=== PATIENT | female | born 1975 | race Caucasian/White ===

== ENCOUNTER 2018-03-27 17:32 | Outpatient (CLI) | payer SELFPAY ==
[2018-03-27 17:44] VITALS: BP 139/64; PULSE 94; RESP 18; TEMP 36.8; O2SAT 97; BMI 45.2
--- NOTE | 2018-03-27 18:04 | US_ITS ---
US OB limited position: INDICATION: ITS.REASON: c/o no movement since 1699 yesterday ORDERING PHYSICIAN: Oleg Xavier MD PATIENT AGE: 42 years TECHNIQUE: ultrasound transabdominal scanning. COMPARISON: No previous relevant studies. FINDINGS: Scanning was performed with Dr. Toney present. There is a single fetus in cephalic presentation. No heartbeat was identified and no flow was seen on Doppler evaluation of the umbilical cord. No spontaneous movement seen. IMPRESSION: Apparent third trimester demise
--- NOTE | 2018-03-27 19:38 | P.PN_ITS ---
Internal Medicine - PN: Subj *Date: 03/27/18 *Time: 19:36 Interval history: She is a 42-year-old 4 para 3 at 38+6 weeks gestational age. Her due date is April 04, 2018. She has been followed by a ambulance assistant and had plan to deliver at home. She has delivered 2 other babies at home. She had decreased movement today and came into labor and delivery. An ultrasound confirmed that she has demise. There is no heart rate activity. There is no flow on Doppler. Exam Vital signs and Labs for Last 24 Hours: Temp Pulse Resp BP Pulse Ox 98.2 F 94 H 18 139/64 97 03/27/18 17:44 03/27/18 17:44 03/27/18 17:44 03/27/18 17:44 03/27/18 17:44 I & O for Last 24 hours: Intake & Output 03/25/18 03/26/18 03/27/18 03/28/18 11:59 11:59 11:59 11:59 Weight 289 lb - Constitutional no acute distress - *Routine HEENT Exam Head: Present: normocephalic Assessment and Plan (1) Stillbirth with antepartum Current visit: Yes Status: Acute Category: Medical Code(s): Z37.1 - Single stillbirth (2) Advanced maternal age (AMA), 40 years or greater Current visit: Yes Status: Acute Category: Medical - Assessment and plan all Dx Assessment and Plan for all problems:: She is 38 and 6 weeks gestational age with advanced maternal age. She has a stillbirth. We will plan to send her home and she will follow-up me in the next 24 hours. We will plan to induce her. Her cervix is closed and the presenting part is very high. We will start with Cervidil and then oxytocin. She will call me in the morning.
[2018-03-27 20:26] LABS: Basophils % 0.1 % (0.1-2.0); Eosinophils # 0.1 K/mm3 (0.0-0.4); Eosinophils % 0.8 % (0.1-12.0); Hematocrit 43.9 % (37.0-47.0); Lymphocytes # 1.6 K/mm3 (0.7-4.5); Lymphocytes % 12.7 K/mm3 (10-50); Mean Corpuscular Volume 90.8 fl (81-99); Mean Platelet Volume 7.7 fl (7.4-10.4); Monocytes # 0.8 K/mm3 (0.1-1.0); Monocytes % 6.1 % (1.7-9.3); Neutrophils % 80.4 % (37.0-80.0); Platelet Count 240 K/mm3 (142-424); Red Blood Count 4.83 M/mm3 (4.20-5.40); Red Cell Distribution Width 14.4 % (11.5-17.5); White Blood Count 12.4 K/mm3 (4.8-10.8)
[2018-03-27 20:48] LABS: Thyroid Stimulating Hormone 3.01 uIU/ml (0.358-3.740)
[2018-03-29 22:22] LABS: PTT-LA 40.6 sec (0.0-51.9)
[2018-03-30 11:58] LABS: Anti-Cardio Antibody IgM <9 MPL U/mL (0-12); Anti-Cardiolipin Antibody IgG <9 GPL U/mL (0-14); Rapid Plasma Reagin Ab Titer Non Reactive (NonRea<1:1); dRVVT 41.6 sec (0.0-47.0)
[2018-03-30 17:08] LABS: Lupus Reflex Interpretation Comment: (.)
[2018-03-31 18:28] LABS: Parvovirus B19, IgG 2.5 index (0.0-0.8); Parvovirus B19, IgM 0.1 index (0.0-0.8)
== END 2018-03-27 20:47 | disposition home or self-care (01) ==
LOC: OBOUT 17:34 → OB 17:35
PROVIDERS: Visit Provider Nurse Practitioner Obstetrics & Gynecology
DX: O36.8130 Decreased fetal movements, third trimester, not applicable or unspecified (principal); Z3A.38 38 weeks gestation of pregnancy
CPT/HCPCS: 36415; 76815; 84443; 85025; 85460; 85461; 85613; 86147; 86592; 86747

== ENCOUNTER 2019-07-01 19:38 | Observation (INO) ==
[2019-07-01 19:54] LABS: Basophils % 0.2 % (0.1-2.0); Eosinophils # 0.1 K/mm3 (0.0-0.4); Eosinophils % 1.2 % (0.1-12.0); Hemoglobin 11.2 g/dL (12.2-16.2); Lymphocytes # 2.5 K/mm3 (0.7-4.5); Lymphocytes % 20.8 % (10-50); Mean Corpuscular HGB Conc 30.4 g/dL (31.8-35.4); Mean Corpuscular Volume 81.6 fl (81-99); Mean Platelet Volume 7.9 fl (7.4-10.4); Monocytes # 0.6 K/mm3 (0.1-1.0); Neutrophils # 8.6 K/mm3 (1.8-7.8); Neutrophils % 72.8 % (37.0-80.0); Platelet Count 427 K/mm3 (142-424); Red Blood Count 4.54 M/mm3 (4.20-5.40); Red Cell Distribution Width 14.5 % (11.5-17.5); White Blood Count 11.8 K/mm3 (4.8-10.8)
[2019-07-01 20:06] LABS: Albumin Level 3.4 gm/dL (3.4-5.0); Albumin/Globulin Ratio 0.9 (1.1-1.8); Anion Gap 14.3 mEq/L (5-15); Bilirubin,Total 0.2 mg/dL (0.2-1.0); Calcium 8.9 mg/dL (8.5-10.1); Total Protein,Serum 7.4 gm/dL (6.4-8.2)
--- NOTE | 2019-07-01 21:39 | Emergency Department Note ---
ED Disposition Clinical Impression: Fracture dislocation of right ankle joint Disposition: Home, Self-Care Condition on Discharge: Good Instructions: DI for Shinbone Fracture, DI for Ankle Fracture Prescriptions: Hydrocodone/Acetaminophen [[place] 10-325 Tablet] 1 tab PO TID PRN 3 Days #10 tab PRN Reason: Moderate To Severe Pain Referrals: Caro Moore [Primary Care Provider] - Time of Disposition: 21:40 - Critical Care Critical Care Time: No Attestation: On 07/01/19, the high probability of a clinically significant, sudden or life threatening deterioration of the following system(s) required my full and direct attention, intervention and personal management. The time I documented below is in addition to time spent performing reported procedures but includes the following listed in this critical care notation. Medical Decision Making - Rafiq Inquiry Pt receiving controlled substance: No Rafiq was queried for this patient: No Vital Signs: 07/01/19 19:39 07/01/19 20:39 Temperature 97.5 F L Temperature Source Oral Pulse Rate [Right Brachial] 73 77 Respiratory Rate 15 15 Blood Pressure [Right Arm] 141/76 H 155/70 H Blood Pressure Mean [Right Arm] 97 98 02 Sat by Pulse Oximetry 100 98 Oxygen Delivery Method Room Air - Lab Data Lab results reviewed: Yes: I reviewed the patient's lab results. Lab Results 07/01/19 19:45: WBC 11.8 H, RBC 4.54, Hgb 11.2 L, Hct 37.0, MCV 81.6, MCH 24.8 L , MCHC 30.4 L, RDW 14.5, Plt Count 427 H, MPV 7.9, Neut % (Auto) 72.8, Lymph % (Auto) 20.8, [place] % (Auto) 5.0, Eos % (Auto) 1.2, Baso % (Auto) 0.2, Neut # (Auto) 8.6 H, Lymph # (Auto) 2.5, [place] # (Auto) 0.6, Eos # (Auto) 0.1, Baso # (Auto) 0.0 07/01/19 19:45: Sodium 140, Potassium 3.3 L, Chloride 106, Carbon Dioxide 23, Anion Gap 14.3, BUN 12, Creatinine 0.75, Estimated Creat Clear 90, Estimated GFR 84, Est GFR ( Amer) 102, Glucose 129 H, Calcium 8.9, Total Bilirubin 0.2, AST 11 L, ALT 20, Alkaline Phosphatase 84, Total Protein 7.4, Albumin 3.4, Globu tiffany 4.0 H, Albumin/Globulin Ratio 0.9 L Result diagrams: 07/01/19 19:45 07/01/19 19:45 Orders (Tests/Meds): ED MEDICATIONS Generic Name Dose Route Start Last Admin Trade Name Freq PRN Reason Stop Dose Admin Sodium Chloride 1,000 mls @ 999 mls/hr 07/01/19 19:45 07/01/19 19:47 Sod Chlor 0.9% 1000ml Bag IV 07/01/19 20:45 999 mls/hr .[id number] TOSHA Administration Discontinued Medications Generic Name Dose Route Start Last Admin Trade Name Freq PRN Reason Stop Dose Admin Hydromorphone HCl 1 mg 07/01/19 19:44 07/01/19 19:47 Dilaudid 2mg/Ml Syringe IV 07/01/19 19:45 1 mg ONCE ONE Administration Ketorolac Tromethamine 30 mg 07/01/19 20:45 07/01/19 20:46 Toradol 30mg/Ml Vial IV 07/01/19 20:46 30 mg ONCE ONE Administration ORDERS Category Date Time Status CT cervical spine wo con Stat Cat Scan 07/01/19 19:[address] head/brain wo con Stat Cat Scan 07/01/19 19:44 Taken Fibula/tibia XR right 2 views [XR tibia fibula RT 2V] Exams 07/01/19 19:44 Taken Stat XR ankle RT min 3V Stat Exams 07/01/19 19:44 Taken Extremity Problem HPI - General Chief complaint: Extremity Injury, Lower Stated complaint: fall Time Seen by Provider: 07/01/19 21:37 Mode of Arrival: EMS Source of Information: Patient Limitations: Physical Limitations Description of Symptoms (Recalled from ER Triage Doc. by RN): Pt brought in after a fall. She reports she slipped in the mud and fell, landing on her right ankle. Right ankle deformity noted. + pulse and cap refill noted. pt reports she laid in the rain for approx 20 min. - Related Data Previous Rx's Medication Instructions Recorded Hydrocodone/Acetaminophen [[place] 1 tab PO TID PRN 3 Days #10 tab 07/01/19 10-325 Tablet] Allergies Allergy/AdvReac Type Severity Reaction Status Date / Time amoxicillin Allergy Verified 03/27/18 18:41 [facility] History - Hepatitis A Screen Drug use history?: No High risk sexual behaviors?: No History of sexually transmitted infection?: No Currently employed?: No Childcare worker?: No Do you have indoor plumbing?: Yes Do you have electricity?: Yes Attestation statement:: This patient has been screened for Hepatitis A risk factors. I have reviewed the patient's past medical history: Yes Medical History: Denies:: Cancer, Diabetes Mellitus Type 1, Diabetes Mellitus Type 2, MRSA Other Surgeries: No: Amputation: No - Social History Alcohol Intake: never Occupational Status: other Housing: house ROS Obtained: Yes All systems reviewed & no additional complaints - Constitutional Constitutional: Denies fever(s) - Cardiovascular Cardiovascular: Denies chest pain - Respiratory Respiratory: No chest congestion - Gastrointestinal Gastrointestingal: Denies: abdominal pain - Musculoskeletal Musculoskeletal: Reports joint swelling, Reports limited range of motion, Denies muscle aches, Reports numbness - Integumentary/Breasts Skin/Breast: Reports rash, Reports skin pain - Hematologic/Lymphatic Henatologic/Lymphatic: Reports easy bleeding, Reports easy bruising Physical Exam - General General appearance: alert, in no apparent distress - Head Head exam: atraumatic - Eye Eye exam: Present: normal appearance - ENT ENT exam: Present: normal exam, normal oropharynx, mucous membranes moist, TM's normal bilaterally, normal external ear exam - Respiratory Respiratory exam: Present: normal lung sounds bilaterally - Cardiovascular Cardiovascular exam: Present: regular rate, normal rhythm. Absent: JVD - Abdominal Exam Abdominal exam: Present: soft - Extremities Exam Extremities exam: Present: tenderness, joint swelling. Absent: normal inspection, full ROM - Expanded Lower Extremity Exam Right Foot/toe exam: Present: tenderness, swelling, ecchymosis, deformity, crepitus. Absent: full ROM - Neurological Exam Neurological exam: Present: alert
[2019-07-01 22:34] LABS: Microscopic, Urine URINE MICROSCOPIC (MICROSCOPIC)
[2019-07-01 22:42] LABS: Appearance,Urine CLEAR (Clear); Bilirubin,Urine Negative (Negative); Blood, Urine TRACE-I (Negative); Color,Urine YELLOW (Yellow); Glucose,Urine (UA) Negative (Negative); Ketones,Urine Negative (Negative); Leukocyte Esterase,Urine Negative (Negative); PH,Urine 7.5 (5.0-8.5); Protein,Urine Negative (Negative); Urobilinogen,Urine 0.2 EU/dl (0.2)
[2019-07-01 22:57] LABS: WBC,Urine Occasional #/hpf (0-3)
[2019-07-01 22:58] LABS: RBC,Urine Occasional #/hpf (0-3)
--- NOTE | 2019-07-02 07:05 | History & Physical Report ---
*Admission Date: 07/01/19 *Chief complaint: Right foot and ankle pain *History of present illness: 43-year-old female without any significant medical problems presented to the emergency department after a fall at home. Patient slipped in the mud twisting her ankle and falling on a bent knee essentially landing on the foot and ankle which resulted in a trimalleolar fracture. She came to the emergency department where the fracture was reduced. ER physician spoke with Dr. Ashraf who plan on evaluation this morning and the patient was admitted for pain control and evaluation by foot and ankle service. This morning the patient reports she was able to get some rest. Pain is tolerable. She denies numbness and tingling in the toes. This is the second time she has broken the right ankle. She also has a prior left ankle fracture that required surgery in 2010. [facility] History I have reviewed the patient's past medical history: Yes Medical History: Denies:: Cancer, Diabetes Mellitus Type 1, Diabetes Mellitus Type 2, MRSA *Have you ever received a pneumonia vaccine?: No *Have you received a flu vaccine this season?: No (pt does not want at d/c) Other Medical History: Reports: Arthritis (knees) Other Surgeries: No: Amputation: No Fractures: Yes (L ankle, r fibula fracture) - *Social History Educational Level: Attended College Smoking Status: Never smoker Alcohol Intake: never *Occupational Status:: other Housing: house Household Members: spouse, children *Travel in the last 8 weeks: None Family Hx:: Diabetes, Stroke, Thyroid Disorder Review of Systems - Constitutional Denies body ache(s), Denies chills - *Cardiovascular Denies chest pain - *Respiratory Denies cough, Denies shortness of breath - *Gastrointestinal Denies abdominal pain - *Musculoskeletal Reports joint pain - *Neurologic Reports numbness Meds Home Medications Medication Instructions Recorded Confirmed Type Hydrocodone/Acetaminophen [[place] 1 tab PO TID PRN 3 Days #10 tab 07/01/19 Rx 10-325 Tablet] Allergies Allergy/AdvReac Type Severity Reaction Status Date / Time amoxicillin Allergy Verified 03/27/18 18:41 Exam Vital signs and Labs for Last 24 Hours: Temp Pulse Resp BP Pulse Ox 98.5 F 86 17 124/63 94 L 07/02/19 04:00 07/02/19 04:00 07/02/19 04:00 07/02/19 04:00 07/02/19 04:00 Laboratory Results - last 24 hr 07/01/19 19:45: WBC 11.8 H, RBC 4.54, Hgb 11.2 L, Hct 37.0, MCV 81.6, MCH 24.8 L , MCHC 30.4 L, RDW 14.5, Plt Count 427 H, MPV 7.9, Neut % (Auto) 72.8, Lymph % (Auto) 20.8, Day % (Auto) 5.0, Eos % (Auto) 1.2, Baso % (Auto) 0.2, Neut # (Auto) 8.6 H, Lymph # (Auto) 2.5, Day # (Auto) 0.6, Eos # (Auto) 0.1, Baso # (Auto) 0.0 07/01/19 19:45: Sodium 140, Potassium 3.3 L, Chloride 106, Carbon Dioxide 23, Anion Gap 14.3, BUN 12, Creatinine 0.75, Estimated Creat Clear 90, Estimated GFR 84, Est GFR ( Amer) 102, Glucose 129 H, Calcium 8.9, Total Bilirubin 0.2, AST 11 L, ALT 20, Alkaline Phosphatase 84, Total Protein 7.4, Albumin 3.4, Globulin 4.0 H, Albumin/Globulin Ratio 0.9 L 07/01/19 21:40: Urine Color Yellow, Urine Appearance Clear, Urine pH 7.5, Ur Specific [place] 1.010, Urine Protein Negative, Urine Glucose (UA) Negative, Urine Ketones Negative, Urine Blood Trace-i, Urine Nitrate Negative, Urine Bili frank Negative, Urine Urobilinogen 0.2, Ur Leukocyte Esterase Negative, Urine RBC Occasional, Urine WBC Occasional, Ur Squamous Epith Cells 3-5 I & O for Last 24 hours: Intake & Output 06/29/19 06/30/19 07/01/19 07/02/19 11:59 11:59 11:59 11:59 Intake Total 2270 / 2270 Output Total 1400 / 1400 Balance 870 / 870 Weight 274 lb 6 oz Narrative: Patient is awake and alert. Pupils are reactive to light. Oropharynx is moist. Neck has no lymphadenopathy. Lungs are clear. Heart has a regular rate and rhythm. Abdomen is soft and nontender. Extremity exam reveals intact sensation in the distal right foot. The right foot and ankle are splinted. Assessment and Plan (1) Fracture dislocation of right ankle joint Current visit: Yes Status: Acute Category: Medical Code(s): S82.891A - Other fracture of right lower leg, initial encounter for closed fracture - Assessment and plan all Dx Assessment and Plan for all problems:: Patient has been admitted for surgical consultation. Patient will be seen by Dr. Ashraf this morning
[2019-07-02 07:10] LABS: Basophils % 0.3 % (0.1-2.0); Eosinophils # 0.1 K/mm3 (0.0-0.4); Hematocrit 30.7 % (37.0-47.0); Lymphocytes # 2.1 K/mm3 (0.7-4.5); Lymphocytes % 19.4 % (10-50); Mean Corpuscular HGB Conc 30.2 g/dL (31.8-35.4); Mean Corpuscular Volume 82.7 fl (81-99); Mean Platelet Volume 7.3 fl (7.4-10.4); Monocytes # 0.7 K/mm3 (0.1-1.0); Neutrophils % 73.3 % (37.0-80.0); Platelet Count 363 K/mm3 (142-424); Red Blood Count 3.72 M/mm3 (4.20-5.40); Red Cell Distribution Width 14.3 % (11.5-17.5); White Blood Count 10.9 K/mm3 (4.8-10.8)
[2019-07-02 07:31] LABS: Anion Gap 13.1 mEq/L (5-15); Calcium 8.2 mg/dL (8.5-10.1)
[2019-07-02 07:32] LABS: Hemoglobin 9.3 g/dL (12.2-16.2)
--- NOTE | 2019-07-02 08:44 | Consult Report ---
*Admission Date: 07/01/19 *Reason for consult:: Right trimalleolar ankle fracture *History of present illness: Mrs Dunaway is a 43-year-old female who presented to the emergency department yesterday 07/01/2019 after a fall at home. Patient is relatively healthy except obesity. [place] when she slipped in the mud and fell twisting the right ankle and "sitting on it". X-rays were taken in the ED revealing a fracture dislocation. Conscious sedation performed and the fracture was reduced. Patient was admitted for pain control and surgery today. Patient has been n.p.o. since midnight. She does complain of some nausea. Pain controlled. She denies numbness and tingling in the toes. This is the second time she has broken the right ankle. She broke the right ankle in 2003 and had cast immobilization or surgery. She also has a prior left ankle fracture that required ORIF surgery in 2010. Review of Systems - Review of Systems Review of systems:: pertinent systems reviewed and negative unless documented below - Constitutional Denies chills, Denies malaise - Eyes Denies blurry vision - ENT Denies abnormal hearing - *Cardiovascular Denies chest pain, Denies shortness of breath - *Respiratory Denies chest congestion, Denies shortness of breath - *Gastrointestinal Reports nausea, Denies vomiting - *Genitourinary Denies abnormal periods - *Musculoskeletal Reports joint swelling, Reports limited joint movement - Integumentary/Breasts Reports dry skin, Denies nail changes - *Neurologic Reports numbness - Psychiatric Denies abnormal sleep pattern - Endocrine Denies cold intolerance - Hematologic/Lymphatic Denies easy bleeding [facility] History I have reviewed the patient's past medical history: Yes Medical History: Denies:: Cancer, Diabetes Mellitus Type 1, Diabetes Mellitus Type 2, MRSA *Have you ever received a pneumonia vaccine?: No *Have you received a flu vaccine this season?: No (pt does not want at d/c) Other Medical History: Reports: Arthritis (knees) Other Surgeries: No: Amputation: No Fractures: Yes (L ankle, r fibula fracture) - *Social History Educational Level: Attended College Smoking Status: Never smoker Alcohol Intake: never *Occupational Status:: other Housing: house Household Members: spouse, children *Travel in the last 8 weeks: None Family Hx:: Diabetes, Stroke, Thyroid Disorder, Other (DVT-grandfather) Meds Home Medications Medication Instructions Recorded Confirmed Type Hydrocodone/Acetaminophen [[place] 1 tab PO TID PRN 3 Days #10 tab 07/01/19 Rx 10-325 Tablet] Allergies Allergy/AdvReac Type Severity Reaction Status Date / Time amoxicillin Allergy Verified 03/27/18 18:41 Exam Vital signs and Labs for Last 24 Hours: Temp Pulse Resp BP Pulse Ox 98.8 F 89 17 129/63 90 L 07/02/19 07:42 07/02/19 07:42 07/02/19 07:42 07/02/19 07:42 07/02/19 07:42 Laboratory Results - last 24 hr 07/01/19 19:45: WBC 11.8 H, RBC 4.54, Hgb 11.2 L, Hct 37.0, MCV 81.6, MCH 24.8 L , MCHC 30.4 L, RDW 14.5, Plt Count 427 H, MPV 7.9, Neut % (Auto) 72.8, Lymph % (Auto) 20.8, [place] % (Auto) 5.0, Eos % (Auto) 1.2, Baso % (Auto) 0.2, Neut # (Auto) 8.6 H, Lymph # (Auto) 2.5, [place] # (Auto) 0.6, Eos # (Auto) 0.1, Baso # (Auto) 0.0 07/01/19 19:45: Sodium 140, Potassium 3.3 L, Chloride 106, Carbon Dioxide 23, Anion Gap 14.3, BUN 12, Creatinine 0.75, Estimated Creat Clear 90, Estimated GFR 84, Est GFR ( Amer) 102, Glucose 129 H, Calcium 8.9, Total Bilirubin 0.2, AST 11 L, ALT 20, Alkaline Phosphatase 84, Total Protein 7.4, Albumin 3.4, Globulin 4.0 H, Albumin/Globulin Ratio 0.9 L 07/01/19 21:40: Urine Color Yellow, Urine Appearance Clear, Urine pH 7.5, Ur Specific [place] 1.010, Urine Protein Negative, Urine Glucose (UA) Negative, Urine Ketones Negative, Urine Blood Trace-i, Urine Nitrate Negative, Urine Bilirubin Negative, Urine Urobilinogen 0.2, Ur Leukocyte Esterase Negative, Urine RBC Occasional, Urine WBC Occasional, Ur Squamous Epith Cells 3-5 07/02/19 06:47: WBC 10.9 H, RBC 3.72 L, Hgb 9.3 L D, Hct 30.7 L, MCV 82.7, MCH 25.0 L, MCHC 30.2 L, RDW 14.3, Plt Count 363, MPV 7.3 L, Neut % (Auto) 73.3, Lymph % (Auto) 19.4, [place] % (Auto) 6.0, Eos % (Auto) 1.0, Baso % (Auto) 0.3, Neut # (Auto) 8.0 H, Lymph # (Auto) 2.1, [place] # (Auto) 0.7, Eos # (Auto) 0.1, Baso # (Auto) 0.0 07/02/19 06:47: Sodium 142, Potassium 4.1 D, Chloride 107, Carbon Dioxide 26, Anion Gap 13.1, BUN 10, Creatinine 0.70, Estimated Creat Clear 96, Estimated GFR 91, Est GFR ( Amer) 110, Glucose 109 H, Calcium 8.2 L I & O for Last 24 hours: Intake & Output 06/29/19 06/30/19 07/01/19 07/02/19 11:59 11:59 11:59 11:59 Intake Total 2270 / 2270 Output Total 1400 / 1400 Balance 870 / 870 Weight 274 lb 6 oz - Constitutional no acute distress, obese - *Routine HEENT Exam Head: Present: normocephalic Eye: Present: PERRL ENT: Present: mucous membranes moist - *Routine Neck Exam Present: supple - *Routine Respiratory Exam Present: accessory muscle use, CTA bilaterally - *Routine Cardiovascular Exam Present: RRR - *Routine Abdominal Exam Present: soft. Absent: guarding - *Routine Rectal Exam Patient deferred: visual exam - *Routine Exam Patient deferred: external exam - *Routine Extremities Exam Present: edema, pulses intact, normal capillary refill. Absent: calf tenderness - Routine Back/Spine/Pelvis Exam Back/Spine: Present: full ROM - *Routine Skin Exam Present: intact, dry - *Routine Neurological Exam Present: alert, moving all extremities - Detailed Lower Extremity Exam Comments: Right lower extremity elevated on 2 pillows. Posterior splint clean dry and intact to the right lower extremity. Cap fill time within normal limits. Motor function intact. Light touch sensation intact. No calf or thigh pain noted bilaterally. Results - Labs Result Diagrams: 07/02/19 06:47 07/02/19 06:47 Labs: Abnormal lab results 07/01/19 07/01/19 07/02/19 Range/Units 19:45 19:45 06:47 WBC 11.8 H 10.9 H (4.8-10.8) K/mm3 RBC 3.72 L (4.20-5.40) M/mm3 Hgb 11.2 L 9.3 L D (12.2-16.2) g/dL Hct 30.7 L (37.0-47.0) % MCH 24.8 L 25.0 L (27.0-31.2) pg MCHC 30.4 L 30.2 L (31.8-35.4) g/dL Plt Count 427 H (142-424) K/mm3 MPV 7.3 L (7.4-10.4) fl Neut # (Auto) 8.6 H 8.0 H (1.8-7.8) K/mm3 Potassium 3.3 L (3.5-5.1) mmoL/L Glucose 129 H (74-106) mg/dL Calcium (8.5-10.1) mg/dL AST 11 L (15-37) U/L Globulin 4.0 H (1.3-3.2) gm/dl Albumin/Globulin Ratio 0.9 L (1.1-1.8) 07/02/19 Range/Units 06:47 WBC (4.8-10.8) K/mm3 RBC (4.20-5.40) M/mm3 Hgb (12.2-16.2) g/dL Hct (37.0-47.0) % MCH (27.0-31.2) pg MCHC (31.8-35.4) g/dL Plt Count (142-424) K/mm3 MPV (7.4-10.4) fl Neut # (Auto) (1.8-7.8) K/mm3 Potassium (3.5-5.1) mmoL/L Glucose 109 H (74-106) mg/dL Calcium 8.2 L (8.5-10.1) mg/dL AST (15-37) U/L Globulin (1.3-3.2) gm/dl Albumin/Globulin Ratio (1.1-1.8) H & H 07/01/19 07/02/19 Range/Units 19:45 06:47 Hgb 11.2 L 9.3 L D (12.2-16.2) g/dL Hct 37.0 30.7 L (37.0-47.0) % All other labs normal. - Diagnostic results Ankle/Foot x-ray: report reviewed, image reviewed Ankle/Foot CT: report reviewed, image reviewed Assessment and Plan (1) Fracture dislocation of right ankle joint Current visit: Yes Status: Acute Category: Medical Code(s): S82.891A - Other fracture of right lower leg, initial encounter for closed fracture (2) Closed right trimalleolar fracture Current visit: Yes Status: Acute Category: Medical Code(s): S82.851A - Displaced trimalleolar fracture of right lower leg, initial encounter for closed fracture (3) Right ankle injury Current visit: Yes Status: Acute Category: Medical Code(s): S99.911A - Unspecified injury of right ankle, initial encounter (4) Osteochondral defect of talus Current visit: Yes Status: Acute Category: Medical Code(s): M95.8 - Other specified acquired deformities of musculoskeletal system (5) Right ankle pain Current visit: Yes Status: Acute Category: Medical Code(s): M25.571 - Pain in right ankle and joints of right foot (6) History of ankle fracture Current visit: Yes Status: Acute Category: Medical Code(s): Z87.81 - Perso nal history of (healed) traumatic fracture (7) Morbid obesity with BMI of 40.0-44.9, adult Current visit: Yes Status: Acute Category: Medical Code(s): E66.01 - Morbid (severe) obesity due to excess calories; Z68.41 - Body mass index (BMI) 40.0-44.9, adult - Assessment and plan all Dx Assessment and Plan for all problems:: Right Ankle Fracture Pre-op: X-rays and CT right ankle evaluated by myself. Report reviewed. There is an oblique fracture through the distal fibular metaphysis with dorsal displacement by 1 cm and mild dorsal and lateral angulation of the distal fracture fragment. There is some comminution at this fracture site. There is a comminuted medial malleolar fracture. The distal fracture fragment is displaced laterally by 12 mm. This fracture is at the epiphyseal region and is oblique in nature with comminution. There is a vertically oriented comminuted fracture involving the posterior distal tibia with dorsal displacement of the dorsal fracture fragment by 7 mm. There is lateral displacement of the talus by approximately 1 cm. There is also dorsal displacement of the talus by approximately 8 mm. No obvious fracture of the talus. There is extensive soft tissue swelling about the ankle. IMPRESSION: Trimalleolar fracture subluxation with comminution of the fracture fragments at with extensive soft tissue swelling of the ankle. X-rays and CT reviewed and discussed with the patient/. Conservative treatment discussed but not recommended. DOI: 07/01/19. We discussed surgery. All risks and benefits were discussed including but not limited to: damage to blood vessels and nerves, bleeding, infection, wound complications, delayed, mal or non-union of bone, post-traumatic arthritis, need for further surgery, need for removal of implant, prolonged swelling of the extremity, prolonged pain, CRPS/RSD, DVT, and anesthetic complications. No guarantees were given. All questions fully answered. The patient verbalized understanding and agreed to proceed with surgery. Consent was obtained. Necessary labs and pre-op testing ordered: hcg, CBC, BMP, EKG. Plan surgery for today: 07/02/19 1. Right ankle ORIF 2. Right syndesmosis ORIF 3. Right debridement talus OCD
--- NOTE | 2019-07-02 09:11 | Pharmacy Consult Notes ---
[facility] Pharmacy VTE Monitoring - Patient Demographics Admission date: 07/01/19 Report Date: 07/02/19 Time: 09:11 Allergies/Adverse Reactions: Patient Allergies amoxicillin Allergy (Verified 03/27/18 18:41) Height: 1.68 m Weight: 124.454 kg Patient Problems: Current Active Problems Fracture dislocation of right ankle joint (Acute) Closed right trimalleolar fracture (Acute) Right ankle injury (Acute) Osteochondral defect of talus (Acute) Right ankle pain (Acute) History of ankle fracture (Acute) Morbid obesity with BMI of 40.0-44.9, adult (Acute) - VTE Risk Labs: VTE Related Lab Results Hgb 9.3 g/dL (12.2-16.2) L D 07/02/19 06:47 Hct 30.7 % (37.0-47.0) L 07/02/19 06:47 Plt Count 363 K/mm3 (142-424) 07/02/19 06:47 BUN 10 mg/dL (7-18) 07/02/19 06:47 Creatinine 0.70 mg/dL (0.55-1.02) 07/02/19 06:47 Estimated Creat Clear 96 mL/min (50-200) 07/02/19 06:47 Was VTE Risk Assessment Performed: Yes VTE Score: 6 VTE Risk Level: Moderate Risk - Prophylaxis VTE Prophylaxis Ordered?: Yes Types of VTE Prophylaxis: TEDS Knee High Location of Applied Device: Left Leg - VTE Diagnosis Confirmed Treatment or plan recommended: Continue Current Treatment
--- NOTE | 2019-07-02 17:48 | Progress Note ---
[facility] Anesthesia Checklist - Structural Data Admitted From: Inpatient Planned Operative Procedure/s: orif r ankle Consent for Planned Operative Procedure(s) Verified: Yes - Airway Assessment C-Spine Mobility Assessed: Yes TMJ Mobility Assessed: Yes Dentition: Good Dentition - Neurological Assessment Level of Consciousness: Awake, Alert, Appropriate - Anesthesia Plan Anesthesia Risk discussed: Yes Anesthesia Plan: Verified ASA Class: II Anesthesia Type: General [facility] History I have reviewed the patient's past medical history: Yes Medical History: Denies:: Cancer, Diabetes Mellitus Type 1, Diabetes Mellitus Type 2, MRSA *Have you ever received a pneumonia vaccine?: No *Have you received a flu vaccine this season?: No (pt does not want at d/c) Other Medical History: Reports: Arthritis (knees) Anesthesia experience/problems:: none Other Surgeries: No: Amputation: No Fractures: Yes (L ankle, r fibula fracture) - *Social History Educational Level: Attended College Smoking Status: Never smoker Alcohol Intake: never Substance Use Type: denies use *Occupational Status:: other Housing: house Household Members: spouse, children *Travel in the last 8 weeks: None Family Hx:: Diabetes, Stroke, Thyroid Disorder, Other (DVT-grandfather)
--- NOTE | 2019-07-02 17:49 | Progress Note ---
[facility] Anesthesia Record Part II Discharge Time: 18:15 Destination: floor PACU nurse assessment reviewed?: Yes Patient Condition:: Good Anesthesia Complications:: None Swallowing reflex intact?: Yes Cyanosis?: No
--- NOTE | 2019-07-02 17:49 | Progress Note ---
[facility] Anesthesia Record Part I Intake, IV Amount: 2,600 Estimated blood loss (mL): 0 Urine output (mL): 1,000 Blood Pressure: 138/89 SaO2: 95 Pulse Rate: 95 Respiratory Rate: 12 Temperature: 98.6 F Patient is:: Awake, Stable Stable to PACU at:: 17:45
--- NOTE | 2019-07-02 17:50 | Operative Note ---
Date of procedure: 07/02/19 Pre-op Diagnosis:: 1. Right displaced trimalleolar ankle fracture 2. Right syndesmosis disruption 3. Right talus OCD 4. Right ankle synovitis Post-op Diagnosis:: Same Procedure performed:: 1. Right trimalleolar ankle ORIF (distal fibula, posterior malleolus, medial malleolus) 2. Right syndesmosis ORIF 3. Right debridement talus OCD 4. Right ankle synovectomy 5. Right application of amniotic membrane graft Surgeon:: Cynthia Ashraf DPM MEDICAL RECORD CODER:: Benton Doyle Anesthesia: GETA, regional (R popliteal block) Estimated blood loss (mL): 50 Clinical Note:: Mrs Dunaway is a 43-year-old female who presented to the emergency department yesterday 07/01/2019 after a fall at home. Patient is relatively healthy except obesity. [place] the farm feeding [place] chickens when she slipped in the mud and fell twisting the right ankle and "sitting on it". X-rays were taken in the ED revealing a fracture dislocation. Conscious sedation performed and the fracture was reduced. Patient was admitted for pain control and surgery today. Patient has been n.p.o. since midnight. She does complain of some nausea. Pain controlled. She denies numbness and tingling in the toes. This is the second time she has broken the right ankle. She broke the right ankle in 2003 and had cast immobilization or surgery. She also has a prior left ankle fracture that required ORIF surgery in 2010. X-rays and CT right ankle evaluated by myself. Report reviewed. There is an oblique fracture through the distal fibular metaphysis with dorsal displacement by 1 cm and mild dorsal and lateral angulation of the distal fracture fragment. There is some comminution at this fracture site. There is a comminuted medial malleolar fracture. The distal fracture fragment is displaced laterally by 12 mm. This fracture is at the epiphyseal region and is oblique in nature with comminution. There is a vertically oriented comminuted fracture involving the posterior distal tibia with dorsal displacement of the dorsal fracture fragment by 7 mm. There is lateral displacement of the talus by approximately 1 cm. There is also dorsal displacement of the talus by approximately 8 mm. No obvious fracture of the talus. There is extensive soft tissue swelling about the ankle. IMPRESSION: Trimalleolar fracture subluxation with comminution of the fracture fragments at with extensive soft tissue swelling of the ankle. X-rays and CT reviewed and discussed with the patient/. Conservative treatment discussed but not recommended. DOI: 07/01/19. We discussed surgery. All risks and benefits were discussed including but not limited to: damage to blood vessels and nerves, bleeding, infection, wound complications, delayed, mal or non-union of bone, post-traumatic arthritis, need for further surgery, need for removal of implant, prolonged swelling of the extremity, prolonged pain, CRPS/RSD, DVT, and anesthetic complications. No guarantees were given. All questions fully answered. The patient verbalized understanding and agreed to proceed with surgery. Consent was obtained. Necessary labs and pre-op testing ordered: hcg, CBC, BMP, EKG. Operative findings:: Displaced right trimalleolar ankle fracture. Posterior malleolus. There was a spiral oblique distal fibula fracture. Medial malleolar fracture as well as and anterior medial fracture of the distal tibia. There is some scuff and osteochondral defect noted to the talus medially. There is synovitis as well as hematoma in the ankle joint. Disruption of the syndesmotic ligament noted. Operative note:: On this date and time patient was deemed an appropriate surgical candidate. Pre- op regional popliteal and saphenous nerve block performed by anesthesia. With informed consent signed, the patient was taken to the operating theater. The patient was positioned prone after general anesthesia was induced. Tourniquet was applied to the right thigh. The lower extremity was prepped and draped in normal sterile fashion. Right Distal Fibula Fracture ORIF: Attention was directed to the posterior lateral ankle where intra-op fluoroscopy was utilized to [place] anatomical landmarks. A linear incision was made between the Achilles and distal fibula. Dissection was carried thru skin and subcutaneous tissue with care taken to maintain surgical hemostasis and safely retract neurovascular structures. Dissection was then carried thru deep fascia to bone. There was disruption of the deep fascia with hematoma noted. The peroneal tendons were visible posteriorly and laterally, and safely retracted during procedure. The fibula was clearly visualized and the fracture was identified. The bone was gapped. The fracture was noted to be communited. Fracture fragments were cleaned out and the wound flushed with copious amounts of normal sterile saline. Right Posterior Malleolus Fracture ORIF: Dissection was then carried down to the posterior tibia where there were 3 main fracture fragments and at least 3 smaller broken pieces that were removed. Utilizing a curette the fracture fragments were cleaned. Please note that there was not any callus formation. Due to the fragmentation the ankle was very unstable. The wound was flushed with copious amounts of normal sterile saline. A curette was used to debride the hematoma tissue from the fracture site. At this point reduction forceps were utilized compressing the distal spiral oblique fibula fracture. Temporary fixation was inserted from posterior to anterior reducing the posterior mallet fracture fragment. Intraoperative fluoroscopy was utilized to check pre-and post-reduction AP and lateral views. The fracture was too communited to fit a lag, intrafrag screw. A bridge plate technique was utilized for the distal fibula. A SurgiLight locking plate was applied and temporarily fixed to the distal fibula as well as the posterior mall. Again x- ray was used to check the reduction and adequate reduction was noted with alignment of the ankle joint. 3.5 mm locking and nonlocking screws were utilized distally to secure the plate to the fibula then posterior malleolus. Intraoperative fluoroscopy was utilized once again to check position reduction it was deemed to be appropriate and stable. More locking screws were then inserted proximally to secure the plate to the proximal section of the fibula. The remaining screw holes were filled in with locking screws. The wound was flushed with copious amounts of normal sterile saline. Deep fascia was then reapproximated with 2-0 Vicryl in a running fashion. 3-0 Vicryl was used to approximate the subcutaneous tissue deep as well as superficially. 3-0 nylon was used to reapproximate the skin in an interrupted mattress fashion. Temporary dressing was then placed to the right posterior ankle incision. Tourniquet deflated hyperemic response noted to the digits. Drapes removed patient then positioned supine and the lower extremity was redraped in a normal sterile fashion. Right Medial Malleolus ORIF: A separate incision was made on the ankle medial to the tibialis anterior tendon. A linear incision was carried down through skin into subcutaneous tissue with care taken to maintain surgical hemostasis and safely retract neurovascular structures. Dissection then carried down through the deep fascia, which was torn and had hematoma formation noted. Next dissection was taken down to the level of the bone. The deltoid ligament was visualized. The fracture site was debrided and flushed with copious muscle sterile saline. The medial mall fracture was reduced and utilizing intraoperative fluoroscopy the ankle joint was taken through range of motion. There was mild instability noted at the syndesmosis, but no large gapping of the medial clear space. Next a 4.0 mm cannulated screw was then inserted into the medial malleolar compressing the fracture fragment. The medial tibial plate was then inserted to buttress and capture the comminuted fracture on the medial and anterior tibia. Locking screws inserted in standard technique. The wound was flushed with copious muscle normal sterile saline. Right Ankle Synovectomy: The ankle joint was visualized and there was synovitis and hematoma/blood noted in the ankle joint. Synovitic fluid was expressed. Using 15 blade the synovitic tissue was sharply debrided.The ankle joint was flushed with copious amounts of normal sterile saline. Right Talus OCD Debridement: Inside the ankle joint there was a defect noted to the medial talus. Utilizing a K wire the area was microfracture to promote bleeding. No large defect noted. Right ORIF Syndesmosis: Attention was directed to anterior of the previous lateral incision to expose the distal fibula. The syndesmosis was reduced with a large clamp. In accordance with desizing machine operator guidelines and standard technique to [place] synch fix suture was inserted. Position was checked under intraoperative fluoroscopy. Reduction of the syndesmosis was noted. The wound was flushed with copious amounts of normal sterile saline. 2-0 and 3-0 Vicryl was then utilized to reapproximate the deep issue. Right Application of Amniotic Membrane Graft: There is a large defect noted in the deep fascia on the medial incision. A piece of amnio graft was laid over the plate to prevent adhesions due to the lack of the deep fascial layer. 3-0 Vicryl was then used to reapproximate the subcutaneous layer in an interrupted fashion. 3-0 nylon was used to reapproximate the skin in an interrupted mattress fashion. Final intraoperative fluoroscopy images taken, negative talar tilt, no medial clear space and negative external rotation noted. Via flow was inserted into the incision sites. The tourniquet was deflated at 225 minutes and immediate hyperemic response was noted to the digits. The wounds were cleansed. Xerofoam, dry sterile dressing was then applied followed by a below knee modified Rangel posterior splint. The patient was awoken from anesthesia and transfer to recovery with vital signs stable and neurovascular status intact. Materials: SurgiLight straight locking distal fibula 6 hole plate, posterior malleolus plate, medial tibial plate SurgiLight 3.5mm locking screws x 14, non locking screws x 1 SurgiLight 4.0mm cannulated screw x 1 SurgiLight [place] Synch fix 1 Viaflow 1 Amniograft Discharge/Plan: Patient is to maintain splint clean dry and intact. Polar pack/ice behind the right knee and elevate on foam ramp or two pillows. Non weight bearing with crutches and walker. Rx given for Percocet 7.5, Zofran and Motrin 800mg, Lovenox. Obtain post op films, 3 views right ankle. Likely discharge home tomorrow after a session of PT. Follow up in one week after discharge. Tourniquet time (min): 225 Condition: stable Disposition: floor Specimens:: None Complications:: None
--- NOTE | 2019-07-02 21:23 | Electrocardiograph Report ---
APPROVED REPORT Exam: Resting ECG HR:85 bpm ECG Measurements Heart Rate 85 AXES [place] 176 P 41 QRSd 142 QRS -50 QT 394 T30 QTc 468 <Conclusion> Normal sinus rhythm Right bundle branch block Left anterior fascicular block Bifascicular block Voltage criteria for left ventricular hypertrophy Abnormal ECG Electronically signed by : Joseph Galvan, 07/02/2019 21:23:12
--- NOTE | 2019-07-03 07:12 | Discharge Summary ---
General - General Admission date:: 07/01/19 Discharge date: 07/03/19 HPI HPI: 43-year-old female without any significant medical problems presented to the emergency department after a fall at home. Patient slipped in the mud twisting her ankle and falling on a bent knee essentially landing on the foot and ankle which resulted in a trimalleolar fracture. She came to the emergency department where the fracture was reduced. ER physician spoke with Dr. Ashraf who plan on evaluation this morning and the patient was admitted for pain control and evaluation by foot and ankle service. This morning the patient reports she was able to get some rest. Pain is tolerable. She denies numbness and tingling in the toes. This is the second time she has broken the right ankle. She also has a prior left ankle fracture that required surgery in 2010. Hospital Course Hospital Course: Patient was admitted and on the morning of the underwent surgical consultation with Dr. Ashraf. Dr. Pro took the patient to the OR in the afternoon for the following procedure: Procedure performed:: 1. Right trimalleolar ankle ORIF (distal fibula, posterior malleolus, medial malleolus) 2. Right syndesmosis ORIF 3. Right debridement talus OCD 4. Right ankle synovectomy 5. Right application of amniotic membrane graft Patient was observed overnight. On the morning of the she underwent crutch training with PT. She was discharged home later in the day Objective Vital signs: Temp Pulse Resp BP Pulse Ox 98.8 F 71 16 120/60 96 07/03/19 03:25 07/03/19 03:25 07/03/19 03:25 07/03/19 03:25 07/03/19 03:25 Results Labs on day of discharge: Labs from last 24 hours 07/02/19 07/02/19 07/01/19 06:47 06:47 21:40 WBC 10.9 H RBC 3.72 L Hgb 9.3 L D Hct 30.7 L MCV 82.7 MCH 25.0 L MCHC 30.2 L RDW 14.3 Plt Count 363 MPV 7.3 L Neut % (Auto) 73.3 Lymph % (Auto) 19.4 [place] % (Auto) 6.0 Eos % (Auto) 1.0 Baso % (Auto) 0.3 Neut # (Auto) 8.0 H Lymph # (Auto) 2.1 [place] # (Auto) 0.7 Eos # (Auto) 0.1 Baso # (Auto) 0.0 Sodium 142 Potassium 4.1 D Chloride 107 Carbon Dioxide 26 Anion Gap 13.1 BUN 10 Creatinine 0.70 Estimated Creat Clear 96 Estimated GFR 91 Est GFR ( Amer) 110 Glucose 109 H Calcium 8.2 L Urine HCG, Qual Negative DS: Diagnosis - Discharge Diagnosis (1) Fracture dislocation of right ankle joint Status: Acute (2) Closed right trimalleolar fracture Status: Acute (3) Right ankle injury Status: Acute (4) Osteochondral defect of talus Status: Acute (5) Right ankle pain Status: Acute (6) History of ankle fracture Status: Acute (7) Morbid obesity with BMI of 40.0-44.9, adult Status: Acute Discharge Plan - Patient Discharge Instructions ACTIVITY: Continue current activity DIET: continue same diet Patient Instructions: DI for Ankle Fracture - Follow up Plan Follow up with: Cynthia Ashraf DPM [Staff Physician] - Disposition: Home, Self-Care - Problem Reconciliation Problems Reviewed?: Yes
[2019-07-03 07:36] LABS: Basophils % 0.1 % (0.1-2.0); Hematocrit 29.1 % (37.0-47.0); Hemoglobin 8.6 g/dL (12.2-16.2); Lymphocytes % 14.7 % (10-50); Mean Corpuscular HGB Conc 29.5 g/dL (31.8-35.4); Mean Corpuscular Volume 83.4 fl (81-99); Mean Platelet Volume 7.8 fl (7.4-10.4); Monocytes # 0.9 K/mm3 (0.1-1.0); Monocytes % 7.1 % (1.7-9.3); Neutrophils # 10.4 K/mm3 (1.8-7.8); Neutrophils % 78.1 % (37.0-80.0); Platelet Count 319 K/mm3 (142-424); Red Blood Count 3.49 M/mm3 (4.20-5.40); Red Cell Distribution Width 14.6 % (11.5-17.5); White Blood Count 13.3 K/mm3 (4.8-10.8)
[2019-07-03 07:59] LABS: Albumin Level 2.7 gm/dL (3.4-5.0); Albumin/Globulin Ratio 0.8 (1.1-1.8); Anion Gap 13.1 mEq/L (5-15); Bilirubin,Total 0.2 mg/dL (0.2-1.0); Calcium 8.3 mg/dL (8.5-10.1); Globulin 3.3 gm/dl (1.3-3.2)
--- NOTE | 2019-07-03 12:15 | Progress Note ---
Subjective Date: 07/03/19 Time: 09:55 Principal diagnosis: Right trimalleolar ankle fracture Interval history: Mrs Dunaway is a 43-year-old female who presented to the emergency department 07/01/2019 after a fall at home. Patient is relatively healthy except obesity. She was out on the farm feeding the chickens when she slipped in the mud and fell twisting the right ankle and "sitting on it". X-rays and CT scan revealing a fracture dislocation. Conscious sedation performed and the fracture was reduced. Patient was admitted for pain control and surgery 07/03/19. Today is is resting comfortably bedside with no complaints of pain. PN: Obj Ex Vital signs: Temp Pulse Resp BP Pulse Ox 98.7 F 71 18 142/76 H 97 07/03/19 07:46 07/03/19 07:46 07/03/19 07:46 07/03/19 07:46 07/03/19 07:46 - Constitutional no acute distress - Routine HEENT Exam Head: Present: normocephalic - Routine Neck Exam Present: supple - Routine Respiratory Exam Present: accessory muscle use, CTA bilaterally - Routine Cardiovascular Exam Present: RRR - Routine Abdominal Exam Present: soft, obese - Routine Extremities Exam Present: edema, pulses intact, normal capillary refill, ALEKSANDER stockings. Absent: calf tenderness - Detailed Lower Extremity Exam Comments: Right lower extremity posterior splint clean dry and intact with leg elevated on 2 pillows. Capillary fill time within normal limits. Light touch sensation and motor function decreased secondary to nerve block. Skin temperature normal. No calf or thigh pain noted bilaterally. - Routine Neurological Exam Present: alert, moving all extremities - Routine Psychiatric Exam Present: normal affect - Urinary Catheter Management Howell Cath placed during this visit: yes Urethral indwelling: No Insertion date: 07/01/19 Insertion time: 21:18 Progress Note: A&P (1) Fracture dislocation of right ankle joint Status: Acute Current Visit: Yes (2) Closed right trimalleolar fracture Status: Acute Current Visit: Yes (3) Right ankle injury Status: Acute Current Visit: Yes (4) Osteochondral defect of talus Status: Acute Current Visit: Yes (5) Right ankle pain Status: Acute Current Visit: Yes (6) History of ankle fracture Status: Acute Current Visit: Yes (7) Morbid obesity with BMI of 40.0-44.9, adult Status: Acute Current Visit: Yes Assessment and Plan for All Diagnoses:: 07/03/19: S/p right ankle surgery 1. Right trimalleolar ankle ORIF (distal fibula, posterior malleolus, medial malleolus), 2. Right syndesmosis ORIF, 3. Right debridement talus OCD, 4. Right ankle synovectomy, 5. Right application of amniotic membrane graft POD # 1 Patient is to maintain splint clean dry and intact. Polar pack/ice behind the right knee and elevate on foam ramp or two pillows. Strict non weight bearing with crutches and walker. Rx given for [place] 7.5, Toradol 10mg, Zofran and Motrin 800mg, Lovenox. Had PT this am. Dispensed incentive spirometer and educated on usage. Lovenox education given. (Davey from pharmacy called and recommended BID dosing due to BMI). Educated patient on DVT/PE signs and symptoms. Follow up in one week after discharge. Total education spent: 20 minutes
== END 2019-07-03 15:24 | disposition home or self-care (01) ==
LOC: ER 19:38 → 2ND 22:18 → INTOOBSV 22:47 → 2ND 22:47
PROVIDERS: ADMIT Family Medicine; ATTEND Family Medicine
CPT/HCPCS: 36415; 70450; 72125; 73590; 73600; 73610; 73700; 76000; 80048; 80053; 81001; 81025; 85025; 93005; 96365; 96367; 96375; 96376; 97161; 99152; 99153; 99285; C1713; C1762; C1776; G0378; J2405; S0077

== ENCOUNTER → 2019-07-22 09:28 | Outpatient (CLI) | payer SELFPAY ==
--- NOTE | 2019-07-22 09:32 | XR_ITS ---
PROCEDURE: XR ANKLE WT BEARING RT MIN 3V CLINICAL INDICATION: post-op Follow-up ORIF trimalleolar fracture COMPARISON: XR ANKLE RT MIN 3V from 07/01/2019 XR ANKLE RT 2V from 07/01/2019 FINDINGS: Status post ORIF trimalleolar fracture dislocation. There is good alignment. Lateral fibular bone plate, posterior medial tibial bone plate and longitudinal screw in the medial malleolar region are present with good alignment. Posterior splint is present IMPRESSION: Good alignment status post ORIF trimalleolar fracture dislocation Dictated by: Damon Krishnamurthy MD 07/22/2019 12:09 Electronically signed by Damon Krishnamurthy MD in [facility] 07/22/2019 12:09
== END ==
PROVIDERS: PCP Pediatrics Adolescent Medicine; Visit Provider Podiatrist
DX: Z98.890 Other specified postprocedural states (principal); M25.571 Pain in right ankle and joints of right foot
CPT/HCPCS: 73610

== ENCOUNTER → 2019-08-13 09:49 | Outpatient (CLI) | payer SELFPAY ==
--- NOTE | 2019-08-13 09:52 | XR_ITS ---
PROCEDURE: XR ANKLE WT BEARING RT MIN 3V CLINICAL INDICATION: post-op Follow-up surgery COMPARISON: XR ANKLE RT 2V from 07/01/2019 XR ANKLE RT MIN 3V from 07/01/2019 XR ANKLE RT MIN 3V from 07/02/2019 XR ANKLE WT BEARING RT MIN 3V from 07/22/2019 FINDINGS: Studies obtained through a cast. Lateral bone plate at the fibula the, posterior bone plate at the distal tibia and medial bone plate of the distal tibia once again noted with good alignment of the fracture fragments. A transparent fixator noted at the tib fib region distally. The ankle mortise is preserved. Fracture lines are not well delineated may be obscured by overlying cast. IMPRESSION: Good alignment status post ORIF trimalleolar fracture Dictated by: Damon Krishnamurthy MD 08/13/2019 14:42 Electronically signed by Damon Krishnamurthy MD in [facility] 08/13/2019 14:42
== END ==
PROVIDERS: PCP Pediatrics Adolescent Medicine; Visit Provider Podiatrist
DX: Z98.890 Other specified postprocedural states (principal); S82.851D Displaced trimalleolar fracture of right lower leg, subsequent encounter for closed fracture with routine healing
CPT/HCPCS: 73610

== ENCOUNTER → 2019-09-24 10:12 | Outpatient (CLI) | payer SELFPAY ==
--- NOTE | 2019-09-24 10:16 | XR_ITS ---
PROCEDURE: XR ANKLE WT BEARING RT MIN 3V CLINICAL INDICATION: post-op Follow-up ORIF COMPARISON: XR ANKLE RT 2V from 07/01/2019 XR ANKLE RT MIN 3V from 07/02/2019 XR ANKLE WT BEARING RT MIN 3V from 07/22/2019 XR ANKLE WT BEARING RT MIN 3V from 08/13/2019 FINDINGS: Cast has been removed. Medial and posterior bone plate present over the distal tibia with a lateral bone plate of the distal fibula with a translucent fixator at the distal tib fib region. There is good alignment. The ankle mortise is preserved. No orthopedic complications. IMPRESSION: Good alignment status post ORIF distal tib fib Dictated by: Damon Krishnamurthy MD 09/24/2019 15:37 Electronically signed by Damon Krishnamurthy MD in [facility] 09/24/2019 15:37
== END ==
PROVIDERS: PCP Pediatrics Adolescent Medicine; Visit Provider Podiatrist
DX: Z98.890 Other specified postprocedural states (principal); S82.851D Displaced trimalleolar fracture of right lower leg, subsequent encounter for closed fracture with routine healing
CPT/HCPCS: 73610